=== PATIENT | female | born 1985 ===

== ENCOUNTER 2019-05-04 13:18 | Outpatient (CLI) | payer BC ==
--- NOTE | 2019-05-04 14:15 | RAD ---
XR Abdomen 2 View HISTORY: Upper abdominal pain COMPARISON: None. FINDINGS: No free air or differential fluid levels are seen. The bowel gas pattern is unremarkable. T here is fecal material in the colon. An IUD seen. There is mild levoscoliosis of the lumbar spine. No suspicious calcifications are noted. IMPRESSION: Constipation.
== END 2019-05-04 13:19 | disposition home or self-care (01) ==
LOC: RAD 13:18 → SCSRAD 13:19
PROVIDERS: ATTEND Family Medicine
DX: R10.84 Generalized abdominal pain (principal); K59.00 Constipation, unspecified
CPT/HCPCS: 74019

== ENCOUNTER 2020-08-08 08:02 | Outpatient (CLI) | payer BC | END 2020-08-08 08:03 | disposition home or self-care (01) | LOC: ULT 08:02 | PROVIDERS: ATTEND Internal Medicine Gastroenterology | DX: R10.9 Unspecified abdominal pain (principal); R19.4 Change in bowel habit; R14.0 Abdominal distension (gaseous); N28.1 Cyst of kidney, acquired | CPT/HCPCS: 93975 ==